=== PATIENT | female | born 1975 | race Caucasian/White ===

== ENCOUNTER 2018-09-25 09:12 | Day surgery (SDC) | payer BC, OTHER ==
[2018-09-24 11:38] VITALS: BMI 23.3
[2018-09-25] MEDS ORDERED: MIDAZOLAM HCL 2 MG/2 ML SINGLE DOSE VIAL ONE (10:19)
[2018-09-25] MEDS ORDERED: SCOPOLAMINE HYDROBROMIDE 1 PATCH PATCH.TD72 ONE (10:25)
[2018-09-25] MEDS ORDERED: PROPOFOL 20 ML ONE (10:58)
[2018-09-25] MEDS ORDERED: BUPIVACAINE HCL/PF 0.25% (2.5MG/ML) 10 ML VIAL IJ ONE (11:26)
[2018-09-25] MEDS ORDERED: oxyCODONE HCL 5 MG TABLET PO PRN ×2 (12:17)
[2018-09-25] MEDS ORDERED: ONDANSETRON 4 MG/2 ML VIAL IVPUSH PRN (12:17)
[2018-09-25] MEDS ORDERED: LACTATED RINGERS SOLUTION 1,000 ML IV SCH (12:30)
[2018-09-25 14:46] VITALS: BP 108/64; PULSE 81; TEMP 97.8
--- NOTE | 2018-09-26 08:52 | OP ---
DATE OF OPERATION: 09/25/2018 PREOPERATIVE DIAGNOSIS: Right long finger laceration with ulnar digital nerve laceration. POSTOPERATIVE DIAGNOSIS: Right long finger laceration with ulnar digital nerve laceration. OPERATIVE PROCEDURE: Right long finger repair of ulnar digital nerve using the operative microscope. SURGEON: Rhiannon Cook MD ULTRASONIC TESTER: BETZY Henriquez ANESTHESIA: General. COMPLICATIONS: None. ESTIMATED BLOOD LOSS: Minimal. INDICATIONS FOR PROCEDURE: The patient is a 42-year-old female with the above finding indicated for operative treatment. Risks, benefits and alternatives were discussed with the patient at length. Proper informed consent was obtained. PROCEDURE: After proper identification of the patient and correct operative site, the patient was brought to the operating room and placed supine on the operating room table. All prominences well padded. General anesthesia was provided by the anesthesiologist. Intravenous antibiotics were given. A timeout procedure was performed. The right upper extremity was prepped and draped in the usual sterile fashion. A well-padded tourniquet was placed over a sterile prep. Esmarch bandage used to exsanguinate right upper extremity. Tourniquet was inflated to 250 mmHg. The patient's laceration was extended both proximally and distally in a jagdish-Abelardo fashion. Blunt and sharp dissection was done through the subcutaneous tissues in the area where the prior laceration was. The ulnar digital nerve was sharply lacerated and there was minimal retraction. Flexor tendons were found to be intact. Ulnar digital artery also was lacerated, but the finger was well perfused prior to the surgery. The microscope was brought into the field and the ends of the nerve were freshened and then repaired in a tension-free fashion using 8-0 nylon sutures. Tension-free repair was achieved. The wound was irrigated and repaired with 5-0 fast-absorbing plain gut as well as Dermabond. Sterile dressings were applied. A splint was placed. The patient was reversed from anesthesia and brought to the recovery room in stable condition. She tolerated the procedure well. Jak Conklin, the minister assistant, was integral throughout the procedure. The procedure could not have been performed without a skilled operative minister assistant. RHIANNON COOK M.D. MARGARET/[id number]
== END 2018-09-25 13:20 | disposition home or self-care (01) ==
LOC: FASU 09:12
PROVIDERS: ATTEND Orthopaedic Surgery Hand Surgery
PROC: 01Q40ZZ Repair Ulnar Nerve, Open Approach (ICD-10-PCS; principal; 2018-09-25 10:30)
DX: S64.492A Injury of digital nerve of right middle finger, initial encounter (principal); W45.8XXA Other foreign body or object entering through skin, initial encounter; Y93.9 Activity, unspecified; Y92.9 Unspecified place or not applicable
CPT/HCPCS: 84703; 94760